=== PATIENT | male | born 1965 | race American Indian/Alaskan Native ===

== ENCOUNTER 2017-08-13 10:20 | Outpatient (CLI) | payer BC ==
[2017-08-13 10:35] LABS: Hematocrit 44.9 % (35.5-45.6); Hemoglobin 15.2 gm/dl (11.8-15.2); Mean Corpuscular HGB Conc 34 % (32-34); Mean Corpuscular Hemoglobin 31 pg (28-32); Mean Corpuscular Volume 91 fl (84-94); Red Blood Count 4.95 M/mm3 (3.65-5.03); Red Cell Distribution Width 13.4 % (13.2-15.2)
[2017-08-13 10:53] LABS: Alanine Aminotransferase 16 units/L (7-56); Albumin 4.2 g/dL (3.9-5); BUN/Creatinine Ratio 14; Blood Urea Nitrogen 15 mg/dL (9-20); Chol/HDL Ratio 3.63 %; HDL Cholesterol 41 mg/dL (40-59); Hemolysis Index 10; LDL Cholesterol,Direct 99 mg/dL (50-130)
[2017-08-13 11:23] LABS: Mean Platelet Volume 9.5 fl (6-12); Platelet Count 170 K/mm3 (140-440)
== END 2017-08-13 10:21 | disposition home or self-care (01) ==
LOC: LAB 10:20
PROVIDERS: ATTEND Internal Medicine
DX: E11.9 Type 2 diabetes mellitus without complications (principal); I10 Essential (primary) hypertension
CPT/HCPCS: 36415; 80053; 80061; 83036; 85027

== ENCOUNTER 2018-12-22 07:25 | Day surgery (SDC) | payer BC ==
[~2018-12-22 07:25] MED LIST: TETRACAINE 0.5% OS PRN
[2018-12-22] MEDS: VIGAMOX OS SCH ×3 (08:30→08:40)
[2018-12-22] MEDS: AK-Dilate OS SCH ×3 (08:30→08:40)
[2018-12-22] MEDS: MYDRIACYL OS SCH ×3 (08:30→08:40)
--- NOTE | 2018-12-22 08:34 | Anesthesia Consultation ---
Anesthesia Consult and Med Hx Date of service: 12/22/18 - Airway Anesthetic Teeth Evaluation: Good ROM Head & Neck: Adequate Mental/Hyoid Distance: Adequate Mallampati Class: Class III Intubation Access Assessment: Possibly Difficult - Pulmonary Exam CTA: Yes - Cardiac Exam Cardiac Exam: RRR - Pre-Operative Health Status ASA Pre-Surgery Classification: ASA2 Proposed Anesthetic Plan: MAC - Pulmonary Hx Smoking: No Hx Respiratory Symptoms: No Hx Sleep Apnea: No - Cardiovascular System Hx Hypertension: Yes (noted prior hx in chart but patient denies) Hx Heart Attack/AMI: No - Central Nervous System CVA: No - Endocrine Hx Non-Insulin Dependent Diabetes: Yes - Other Systems Hx Obesity: No - Additional Comments Anesthesia Medical History Comments: No prior GA. No FHx anesthetic complications.
--- NOTE | 2018-12-22 08:34 | Anesthesia Day of Surgery ---
Anesthesia Day of Surgery - Day of Surgery Patient Examined: Yes Patient H&P Reviewed: Yes Patient is NPO: Yes
[2018-12-22] MEDS ORDERED: DIAMOX PO NR (09:26)
[2018-12-22] MEDS ORDERED: HumuLIN R IV ONE (09:30)
[2018-12-22] MEDS ORDERED: SUBLIMAZE ONE (09:34)
[2018-12-22] MEDS ORDERED: VERSED ONE (09:34)
[2018-12-22] MEDS ORDERED: NACL P/F VIAL (10 ML) 10 ML ONE (09:35)
--- NOTE | 2018-12-22 09:56 | Operative Report ---
Operative Report Operative Report: PATIENT'S NAME: DATE OF : DATE OF SURGERY: 12/22/2018 PREOPERATIVE DIAGNOSIS: Cataract left eye POSTOPERATIVE DIAGNOSIS: Same OPERATIVE PROCEDURE: Phacoemulsification with intraocular lens implantation, left eye SURGEON: Mildred Louise M.D. MANAGER RESPIRATORY CARE SURGEON: Bernadette Lens: [id number] 22.0 D ANESTHESIA: Monitored anesthesia care in combination with topical and intracameral anesthesia because of the established specific risk of reflux, arrhythmias, or anxiety attacks associated with ocular manipulation, as well as the difficulty of the drapery inspector to manage such potentially catastrophic events while simultaneously attempting to complete the surgical procedure and was deemed necessary for the patient's safety to have an Marine Electronics Repairer present during the procedure whenever possible. An Marine Electronics Repairer was utilized to regulate the intravenous sedation of the patient so the patient was cooperative yet not asleep in order for the patient to successfully maintain fixation of the eye on the operating light of the microscope. COMPLICATIONS: No surgical complications No blood loss. ALLERGIES: No known drug allergies PROGNOSIS: Excellent INDICATIONS FOR SURGERY: The patient is undergoing surgery in the hopes of eliminating or improving these visual difficulties. PROCEDURE: After arriving at the surgery center, the patient was given topical anesthetic and dilating drops, as noted in the record. The patient was then taken into the operating room and given more anesthetic drops. The eyelids, lashes, and lid margins were scrubbed with Betadine solution, and the patient was draped. The Nurse Marine Electronics Repairer administered IV sedation and monitored the patient during the procedure. The eye was then fixated with a 0.12, and a stab incision was made in the peripheral clear cornea into the anterior chamber. This was made on my left side. Viscoelastic was next used to fill the anterior chamber. The eye was once again fixated with the 0.12 forceps and a keratome was used make an incision in clear cornea peripherally on my right hand side temporally. The capsule forceps were used to open the central anterior capsule and then make a continuous round capsulotomy. Hydrodissection was carried out utilizing a cannula and balanced salt solution to delineate the cortical material from the capsule and the nucleus from the cortical material. The phaco tip was introduced into the eye and used to remove the anterior cortical material in the area of the capsulotomy. Then the phaco tip was buried into the nucleus, and a chopping instrument was introduced into the eye and used to provide countertraction in the nucleus between this instrument and the phaco tip fracturing the nucleus. This procedure was repeated multiple times, providing multiple small segments of the lens, and then the phaco tip was used to remove each of these segments. An I/A tip was then used to remove the remaining cortex. The anterior chamber was refilled with viscoelastic. An one-piece, acrylic intraocular lens was then placed into an inserting cartridge. The tip of the inserting cartridge was introduced into the keratome incision and into the anterior chamber. The implant was gently advanced through the cartridge and into the eye, where it unfolded, and both haptics were placed in the capsular bag, where it centered nicely and appeared to be well fixated. After placement of the intraocular lens, the I~and~A handpiece was placed back into the eye and used to remove the viscoelastic, including viscoelastic that was behind the optic of the intraocular lens. The anterior chamber was then filled with balanced salt solution, and hydration of the wound was used to cause swelling of the wound and more appropriate watertight closure. When the wound was found to be firm, the patient was asked to comment on how bright the light was. If there was no light perception at all or if the light was substantially dimmer than during the rest of the surgery, the amount of fluid in the eye was decompressed to lower the intraocular pressure until the patient could see the bright light again. This was done to avoid any damage or decreased blood flow to the optic nerve. MEDICATIONS APPLIED AT END OF SURGERY: One drop of Pred Forte and Vigamox The patient was given a shield to wear at night and was instructed not to rub or push on the eye. DISCHARGE SUMMARY: The patient was released in stable condition. The patient and those with the patient were given a written sheet of postoperative instructions and counseling on any abnormal laboratory studies. The patient is to see us tomorrow for follow-up in the office and is to call immediately for any difficulties. Mildred Louise M.D. Date
--- NOTE | 2018-12-22 09:56 | Short Stay Summary ---
Short Stay Documentation Date of service: 12/22/18 - History H&P: obtained from office - Allergies and Medications Current Medications: Allergies No Known Allergies Allergy (Unverified 12/20/18 14:12) Home Medications Medication Instructions Recorded Confirmed Last Taken Type No Known Home Medications [No 12/20/18 12/20/18 Unknown History Reported Home Medications] Active Medications Acetazolamide (Diamox) 500 mg PO ONCE NR Stop: 12/22/18 13:00 Moxifloxacin HCl (Vigamox) 1 drops OS Q5M MIKE Stop: 12/22/18 23:59 Last Admin: 12/22/18 08:40 Dose: 1 drops Documented by: Phenylephrine HCl (Ak-Dilate) 1 drops OS Q5M MIKE Stop: 12/22/18 23:59 Last Admin: 12/22/18 08:40 Dose: 1 drops Documented by: Prednisolone Acetate (Pred Forte 1%) 1 drops OS ONCE NR Stop: 12/22/18 13:00 Tetracaine HCl (Tetracaine 0.5%) 1 drops OS Q5M PRN PRN Reason: Anesthesia Stop: 12/22/18 23:59 Last Admin: 12/22/18 08:30 Dose: 1 drops Documented by: Tropicamide (Mydriacyl) 1 drops OS Q5M MIKE Stop: 12/22/18 23:59 Last Admin: 12/22/18 08:40 Dose: 1 drops Documented by: - Brief post op/procedure progress note Date of procedure: 12/22/18 Pre-op diagnosis: left cataract Post-op diagnosis: same Procedure: Phacoemulsification with intraocular lens insertion left eye Anesthesia: MAC, local Surgeon: JOSE RAUL ABDI Estimated blood loss: none Pathology: none Condition: stable - Disposition Condition at discharge: Good Disposition: DC-01 TO HOME OR SELFCARE - Discharge Diagnoses (1) Combined forms of age-related cataract of left eye Status: Resolved Short Stay Discharge Plan Follow up with: DEBORAH TEIXEIRA MD [Primary Care Provider] - 7 Days
[2018-12-22] MEDS ORDERED: PRED FORTE 1% OS NR (10:00)
--- NOTE | 2018-12-22 12:30 | Post Anesthesia Evaluation ---
- Post Anesthesia Evaluation Patient Participated: Yes Airway Patent: Yes Stable Respiratory Function: Yes Nausea/Vomiting: No Temp > 96.8F: Yes Pain Manageable: Yes Adequeate Hydration: Yes Anesthesia Complications: No
[2018-12-22 15:57] VITALS: BP 106/76
[2018-12-22] MEDS ORDERED: DIAMOX ONE (16:33)
[2018-12-22] MEDS ORDERED: PRED FORTE 1% ONE (16:33)
== END 2018-12-22 10:50 | disposition home or self-care (01) ==
LOC: OR 07:25
DX: E11.36 Type 2 diabetes mellitus with diabetic cataract (principal); H25.812 Combined forms of age-related cataract, left eye; I10 Essential (primary) hypertension; E78.00 Pure hypercholesterolemia, unspecified
CPT/HCPCS: 66984; 82962; J2250; J3010; V2632

== ENCOUNTER 2019-01-12 07:26 | Day surgery (SDC) | payer BC ==
--- NOTE | 2019-01-12 08:00 | Anesthesia Consultation ---
Anesthesia Consult and Med Hx Date of service: 01/12/19 - Airway Anesthetic Teeth Evaluation: Good ROM Head & Neck: Adequate Mental/Hyoid Distance: Adequate Mallampati Class: Class III Intubation Access Assessment: Possibly Difficult - Pulmonary Exam CTA: Yes - Cardiac Exam Cardiac Exam: RRR - Pre-Operative Health Status ASA Pre-Surgery Classification: ASA2 Proposed Anesthetic Plan: MAC - Pulmonary Hx Smoking: No Hx Respiratory Symptoms: No - Cardiovascular System Hx Hypertension: Yes (patient denies. ) Hx Heart Attack/AMI: No - Central Nervous System CVA: No - Gastrointestinal Hx Gastroesophageal Reflux Disease: No - Endocrine Hx Renal Disease: No Hx Liver Disease: No Hx Non-Insulin Dependent Diabetes: Yes (noncompliant with medications) Hx Thyroid Disease: No - Other Systems Hx Obesity: No
--- NOTE | 2019-01-12 08:00 | Anesthesia Day of Surgery ---
Anesthesia Day of Surgery - Day of Surgery Patient Examined: Yes Patient H&P Reviewed: Yes Patient is NPO: Yes
[2019-01-12] MEDS ORDERED: HumuLIN R IV NR (08:17)
[2019-01-12] MEDS ORDERED: TETRACAINE 0.5% OD NR (08:29)
[2019-01-12] MEDS ORDERED: MYDRIACYL OD NR (08:30)
[2019-01-12] MEDS: VIGAMOX OU SCH ×3 (08:57→09:07)
[2019-01-12] MEDS: MYDRIACYL OD SCH ×3 (08:57→09:07)
[2019-01-12] MEDS: AK-Dilate OD SCH ×3 (08:57→09:07)
[2019-01-12] MEDS ORDERED: NEOFRIN OD SCH (09:00)
[2019-01-12] MEDS ORDERED: VIGAMOX OU SCH (09:00)
[2019-01-12] MEDS ORDERED: DIAMOX PO NR (09:28)
[2019-01-12] MEDS ORDERED: PRED FORTE 1% OD NR (09:28)
[2019-01-12] MEDS ORDERED: VERSED ONE (09:45)
[2019-01-12] MEDS ORDERED: SUBLIMAZE ONE (09:45)
--- NOTE | 2019-01-12 10:00 | Operative Report ---
Operative Report Operative Report: PATIENT'S NAME: DATE OF : DATE OF SURGERY: 01/12/2019 PREOPERATIVE DIAGNOSIS: Cataract right eye POSTOPERATIVE DIAGNOSIS: Same OPERATIVE PROCEDURE: Phacoemulsification with intraocular lens implantation, right eye SURGEON: Mildred Louise M.D. ADVISORY INTERNSHIP SURGEON: Bernadette Lens: [id number] 23.0 D ANESTHESIA: Monitored anesthesia care in combination with topical and intracameral anesthesia because of the established specific risk of reflux, arrhythmias, or anxiety attacks associated with ocular manipulation, as well as the difficulty of the global logistics analyst to manage such potentially catastrophic events while simultaneously attempting to complete the surgical procedure and was deemed necessary for the patient's safety to have an Screen Printer present during the procedure whenever possible. An Screen Printer was utilized to regulate the intravenous sedation of the patient so the patient was cooperative yet not asleep in order for the patient to successfully maintain fixation of the eye on the operating light of the microscope. COMPLICATIONS: No surgical complications No blood loss. ALLERGIES: No known drug allergies PROGNOSIS: Excellent INDICATIONS FOR SURGERY: The patient is undergoing surgery in the hopes of eliminating or improving these visual difficulties. PROCEDURE: After arriving at the surgery center, the patient was given topical anesthetic and dilating drops, as noted in the record. The patient was then taken into the operating room and given more anesthetic drops. The eyelids, lashes, and lid margins were scrubbed with Betadine solution, and the patient was draped. The Nurse Screen Printer administered IV sedation and monitored the patient during the procedure. The eye was then fixated with a 0.12, and a stab incision was made in the peripheral clear cornea into the anterior chamber. This was made on my left side. Viscoelastic was next used to fill the anterior chamber. The eye was once again fixated with the 0.12 forceps and a keratome was used make an incision in clear cornea peripherally on my right hand side temporally. The capsule forceps were used to open the central anterior capsule and then make a continuous round capsulotomy. Hydrodissection was carried out utilizing a cannula and balanced salt solution to delineate the cortical material from the capsule and the nucleus from the cortical material. The phaco tip was introduced into the eye and used to remove the anterior cortical material in the area of the capsulotomy. Then the phaco tip was buried into the nucleus, and a chopping instrument was introduced into the eye and used to provide countertraction in the nucleus between this instrument and the phaco tip fracturing the nucleus. This procedure was repeated multiple times, providing multiple small segments of the lens, and then the phaco tip was used to remove each of these segments. An I/A tip was then used to remove the remaining cortex. The anterior chamber was refilled with viscoelastic. An one-piece, acrylic intraocular lens was then placed into an inserting cartridge. The tip of the inserting cartridge was introduced into the keratome incision and into the anterior chamber. The implant was gently advanced through the cartridge and into the eye, where it unfolded, and both haptics were placed in the capsular bag, where it centered nicely and appeared to be well fixated. After placement of the intraocular lens, the I~and~A handpiece was placed back into the eye and used to remove the viscoelastic, including viscoelastic that was behind the optic of the intraocular lens. The anterior chamber was then filled with balanced salt solution, and hydration of the wound was used to cause swelling of the wound and more appropriate watertight closure. When the wound was found to be firm, the patient was asked to comment on how bright the light was. If there was no light perception at all or if the light was substantially dimmer than during the rest of the surgery, the amount of fluid in the eye was decompressed to lower the intraocular pressure until the patient could see the b right light again. This was done to avoid any damage or decreased blood flow to the optic nerve. MEDICATIONS APPLIED AT END OF SURGERY: One drop of Pred Forte and Vigamox The patient was given a shield to wear at night and was instructed not to rub or push on the eye. DISCHARGE SUMMARY: The patient was released in stable condition. The patient and those with the patient were given a written sheet of postoperative instructions and counseling on any abnormal laboratory studies. The patient is to see us tomorrow for follow-up in the office and is to call immediately for any difficulties. Mildred Louise M.D. Date
--- NOTE | 2019-01-12 10:01 | Short Stay Summary ---
Short Stay Documentation Date of service: 01/12/19 - History H&P: obtained from office - Allergies and Medications Current Medications: Allergies No Known Allergies Allergy (Verified 01/09/19 16:52) Home Medications Medication Instructions Recorded Confirmed Last Taken Type No Known Home Medications [No 12/20/18 01/09/19 Unknown History Reported Home Medications] Active Medications Acetazolamide (Diamox) 500 mg PO ONCE NR Stop: 01/12/19 15:00 Moxifloxacin HCl (Vigamox) 1 drops OU Q5MIN MIKE Stop: 01/14/19 09:01 Phenylephrine HCl (Ak-Dilate) 1 drops OD Q5MIN MIKE Stop: 01/14/19 08:46 Prednisolone Acetate (Pred Forte 1%) 1 drops OD ONCE NR Stop: 01/12/19 15:00 Tetracaine HCl (Tetracaine 0.5%) 1 drops OD ONCE NR Stop: 01/12/19 15:00 Tropicamide (Mydriacyl) 3 drops OD Q5MIN NR Stop: 01/12/19 15:00 - Brief post op/procedure progress note Date of procedure: 01/12/19 Pre-op diagnosis: right cataract Post-op diagnosis: same Procedure: Phacoemulsification with intraocular lens insertion right eye Anesthesia: MAC, local Surgeon: JOSE RAUL ABDI Estimated blood loss: none Pathology: none Condition: stable - Disposition Condition at discharge: Good Disposition: DC-01 TO HOME OR SELFCARE - Discharge Diagnoses (1) Cortical age-related cataract of right eye Status: Resolved Short Stay Discharge Plan Follow up with: DEBORAH TEIXEIRA MD [Primary Care Provider] - 7 Days
[2019-01-12 14:06] VITALS: BP 111/79
--- NOTE | 2019-01-12 14:07 | Post Anesthesia Evaluation ---
- Post Anesthesia Evaluation Patient Participated: Yes Airway Patent: Yes Stable Respiratory Function: Yes Nausea/Vomiting: No Temp > 96.8F: Yes Pain Manageable: Yes Adequeate Hydration: Yes Anesthesia Complications: No Block Receding Appropriately: Not Applicable Patient on Ventilator: No
== END 2019-01-12 11:10 | disposition home or self-care (01) ==
LOC: OR 07:26
DX: E11.36 Type 2 diabetes mellitus with diabetic cataract (principal); H25.011 Cortical age-related cataract, right eye; E78.00 Pure hypercholesterolemia, unspecified; I10 Essential (primary) hypertension; Z98.890 Other specified postprocedural states; Z98.42 Cataract extraction status, left eye
CPT/HCPCS: 66984; 82962; J2250; J3010; J1815; V2632

== ENCOUNTER 2019-12-12 06:36 | Day surgery (SDC) | payer BC ==
[2019-12-12] MEDS ORDERED: SODIUM CHLORIDE 0.9% 1000 ML 1,000 ML IV SCH (07:00)
[2019-12-12] MEDS ORDERED: LIDOCAINE MPF (2%) 20 MG/1 ML VIAL 5 ML ONE (07:30)
--- NOTE | 2019-12-12 07:37 | Anesthesia Consultation ---
Anesthesia Consult and Med Hx Date of service: 12/12/19 - Airway Anesthetic Teeth Evaluation: Good ROM Head & Neck: Adequate Mental/Hyoid Distance: Adequate Mallampati Class: Class II Intubation Access Assessment: Probably Good - Pre-Operative Health Status ASA Pre-Surgery Classification: ASA2 Proposed Anesthetic Plan: MAC - Pulmonary Hx Smoking: No Hx Asthma: No Hx Respiratory Symptoms: No SOB: No COPD: No Home Oxygen Therapy: No Hx Pneumonia: No Hx Sleep Apnea: Yes - Cardiovascular System Hx Hypertension: Yes Hx Coronary Artery Disease: No Hx Heart Attack/AMI: No Hx Angina: No Hx Percutaneous Transluminal Coronary Angioplasty (PTCA): No Hx Cardia Arrhythmia: No Hx Pacemaker: No Hx Internal Defibrillator: No Hx Valvular Heart Disease: No Hx Heart Murmur: No Hx Peripheral Vascular Disease: No - Central Nervous System Hx Neuromuscular Disorder: No Hx Seizures: No CVA: No Hx Back Pain: No Hx Psychiatric Problems: No - Gastrointestinal Hx Ulcer: No Hx Gastroesophageal Reflux Disease: No - Endocrine Hx Renal Disease: No Hx End Stage Renal Disease: No Hx Cirrhosis: No Hx Liver Disease: No Hx Insulin Dependent Diabetes: No Hx Non-Insulin Dependent Diabetes: Yes (noncompliant with medications) Hx Thyroid Disease: No Hx Hypothyroidism: No Hx Hyperthyroidism: No - Hematic Hx Anemia: No Hx Sickle Cell Disease: No - Other Systems Hx Alcohol Use: No Hx Substance Use: No Hx Cancer: No Hx Obesity: No
--- NOTE | 2019-12-12 07:38 | Anesthesia Day of Surgery ---
Anesthesia Day of Surgery - Day of Surgery Patient Examined: Yes Patient H&P Reviewed: Yes Patient is NPO: Yes
[2019-12-12] MEDS ORDERED: propofoL 200 MG/20 ML VIAL IV ONE ×2 (07:53)
--- NOTE | 2019-12-12 08:28 | Operative Report ---
Operative Report Operative Report: DOS: 12/12/2019 SURGEON: Chong Vital MD COLONOSCOPY with snare polypectomy and biopsy polypectomy REPORT PREOPERATIVE AND POSTOPERATIVE DIAGNOSIS: screening colon DESCRIPTION OF PROCEDURE: The colonoscope was passed to the terminal ileum as identified by the ileal tissue. Scope was carefully withdrawn. Retroflexion was performed in the rectum. At the end of procedure, the scope was cleaned using normal technique. Vital signs monitored continuously throughout. SEDATION: Provided by Anesthesiology Services. Quality of the prep was very good COMPLICATIONS: None. ESTIMATED BLOOD LOSS: minimal FINDINGS: * Normal terminal ileum * 2 mm sessile polyp in the ascending colon removed by cold biopsy forceps * 4 mm polyp in the ascending colon, sessile, removed by cold snare polypectomy * 5 mm semi-sessile polyp in the ascending colon removed by cold snare polypectomy * 4 mm sessile polyp in the transverse colon removed by cold snare polypectomy * Remainder of the exam was unremarkable RECOMMENDATIONS: Repeat colonoscopy in 3 to 5 years based upon pathology results. Spoke with patient's , Mila, explaining test results
[2019-12-12 08:54] VITALS: BP 104/73
== END 2019-12-12 06:37 | disposition home or self-care (01) ==
LOC: GIO 06:36
PROVIDERS: ATTEND Student in an Organized Health Care Education/Training Program
DX: Z12.11 Encounter for screening for malignant neoplasm of colon (principal); D12.2 Benign neoplasm of ascending colon; D12.3 Benign neoplasm of transverse colon; E78.00 Pure hypercholesterolemia, unspecified; I10 Essential (primary) hypertension; G47.30 Sleep apnea, unspecified; E11.9 Type 2 diabetes mellitus without complications; Z98.890 Other specified postprocedural states; Z98.41 Cataract extraction status, right eye; Z98.42 Cataract extraction status, left eye
CPT/HCPCS: 45380; 45385; 82962; 88305; J2704; J7030

== ENCOUNTER 2020-02-07 09:47 | Outpatient (CLI) | payer BC ==
[2020-02-07 10:20] LABS: Basophils % (Auto) 0.8 % (0.0-1.8); Eosinophils # (Auto) 0.1 K/mm3 (0.0-0.4); Hematocrit 46.2 % (35.5-45.6); Hemoglobin 15.5 gm/dl (11.8-15.2); Lymphocytes # (Auto) 2.4 K/mm3 (1.2-5.4); Lymphocytes % (Auto) 38.5 % (13.4-35.0); Mean Corpuscular HGB Conc 34 % (32-34); Mean Corpuscular Volume 94 fl (84-94); Monocytes # (Auto) 0.5 K/mm3 (0.0-0.8); Monocytes % (Auto) 8.3 % (0.0-7.3); Red Blood Count 4.93 M/mm3 (3.65-5.03); Red Cell Distribution Width 13.4 % (13.2-15.2)
[2020-02-07 10:37] LABS: Platelet Count 179 K/mm3 (140-440)
[2020-02-07 11:09] LABS: Erythrocyte Sedimentation Rate 1 mm/Hr (0-20)
[2020-02-07 11:13] LABS: Alanine Aminotransferase 10 units/L (7-56); Albumin 4.2 g/dL (3.9-5); BUN/Creatinine Ratio 10; Blood Urea Nitrogen 13 mg/dL (9-20); Calcium 9.4 mg/dL (8.4-10.2); Chol/HDL Ratio 3.24 %; HDL Cholesterol 45 mg/dL (40-59); Hemolysis Index 9; LDL Cholesterol,Direct 93 mg/dL (50-130)
== END 2020-02-07 09:48 | disposition home or self-care (01) ==
LOC: LAB 09:47
PROVIDERS: ATTEND Internal Medicine
DX: I10 Essential (primary) hypertension (principal); E08.44 Diabetes mellitus due to underlying condition with diabetic amyotrophy; M25.579 Pain in unspecified ankle and joints of unspecified foot
CPT/HCPCS: 36415; 80053; 80061; 83036; 85025; 85652; 86431